=== PATIENT | female | born 1965 | race Caucasian/White ===

== ENCOUNTER → 2023-06-25 06:28 | Day surgery (SDC) | payer BC, SELFPAY ==
[2023-06-25 07:20] LABS: Glucose - Point of Care 189 mg/dl (70-99)
== END ==
LOC: GI 06:28
PROVIDERS: ATTENDING PHYSICIAN Internal Medicine Gastroenterology
DX: K62.5 Hemorrhage of anus and rectum (principal); R19.4 Change in bowel habit
CPT/HCPCS: 45380; 88305; 82962

== ENCOUNTER 2023-11-20 03:08 | Emergency (ER) | payer BC, SELFPAY ==
[2023-11-20] VITALS (19 sets, daily range): BP systolic 58–188; BP diastolic 20–156
[2023-11-20 03:26] LABS: Glucose - Point of Care 433 mg/dl (70-99)
[2023-11-20 03:36] LABS: % Basophils 1.9 % (0-2); % Immature Granulocytes 1.9 % (0-0.5); % Monocytes 8.2 % (1.7-9.3); Absolute Basophils 0.1 10^3/uL (0-0.2); Absolute Immature Granulocytes 0.1 10^3/uL (0-0.05); Absolute Lymphocytes 0.9 10^3/uL (1.2-3.4); Absolute Monocytes 0.3 10^3/uL (0.1-0.6); Absolute Neutrophils 1.9 10^3/uL (1.4-6.5); Hematocrit 58.7 % (37.0-47.0); Mean Corp Hgb Conc. 32.4 g/dL (33.0-37.0); Mean Corpuscular Hgb 27.3 pg (27.0-31.0); Mean Corpuscular Volume 84.5 fL (81.0-99.0); Mean Platelet Volume 10.4 fL (7.4-10.4); Nucleated Red Blood Cells % 0 %; Platelet Count 237 10^3/uL (130-400); Red Blood Cell Count 6.95 10^6/uL (4.20-5.40); Red Cell Dist. Width 13.2 % (11.5-14.5); White Blood Cell Count 3.2 10^3/uL (4.8-10.8)
[2023-11-20 03:38] LABS: Venous Blood Gas B.E. -18.1 mmol/L (-4 to +4); Venous Blood Gas HCO3 9.2 mmol/L (22-27); Venous Blood Gas O2 Sat % 64.5 %; Venous Blood Gas pCO2 27 mmHg (35-48); Venous Blood Gas pO2 40 mmHg (30-50)
[2023-11-20 03:39] LABS: Venous Blood Gas pH 7.14 (7.32-7.43)
--- NOTE | 2023-11-20 03:43 | ED.GENMED ---
History of Present Illness
General
Chief Complaint: Change in Mental Status
Source: spouse and ambulance crew
Exam Limitations: altered mental status
Time Seen by Provider: 11/20/23 03:20
Nursing documentation reviewed up to this point in time: agreed with
History of Present Illness
History of Present Illness:
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
notes that his has been complaining of a headache throughout the week, taking Tylenol over the past several days but headache has been severe throughout the day yesterday and she called her at 5 PM yesterday evening asking him
to come home from work as her headache was severe and she began vomiting. Several episodes of vomiting tonight with persistently severe headache. She became more drowsy which prompted called 911. She arrives via EMS significantly drowsy/obtunded,
intermittently moaning to painful stimuli, purposeful withdrawal to painful stimuli.
He does not believe she has suffered any falls. No seizure activity. She has not had a fever. She has not had a cough.
She has not been incontinent of bladder nor bowel.
She does have history of tiz-qmbucat-ogluyfest diabetes maintained on Jardiance and metformin. Most recent hemoglobin A1c 8.8.
Since initiating chemotherapy she has been started on oral Decadron. admits that her blood sugars have been running elevated in the 300s to 400s.
Prehospital Accu-Chek over 400.
According to , previous head imaging showed no evidence of brain metastatic disease.
Past History
Past History
ED Past Medical History: Cancer (Tongue cancer metastatic to cervical lymph nodes), Hypercholesterolemia and NIDDM
Social History
Tobacco: Non-smoker
Alcohol: None
Drug: None
Personal:
Living: with family
Employment: Employed
Family History
Family History: Unable to obtain
Phy Exam
Physical Exam
Physical Exam:
GENERAL: 58-year-old woman appears her stated age. Significantly drowsy/obtunded. GCS of 10.
EYE: Pupils are 2 to 3 mm, bilaterally sluggish to light. Disconjugate gaze. Anicteric
NECK: Supple, nontender, no meningismus, no significant adenopathy.
ENT: posterior pharynx is clear, oral mucosa is mildly dry. TM clear b/l, nares patent.
CARDIAC: Regular rhythm, tachycardic. no murmur.
LUNGS: no acute respiratory distress, scant rales right base otherwise clear to auscultation.
ABDOMEN: Soft, nondistended, without appreciable tenderness.
NEUROLOGICAL: Obtunded, GCS of 10. Withdrawals to painful stimuli.
SKIN: Warm and dry, normal color, skin intact. No rash.
MUSCULOSKELETAL: No C/C/E. peripheral pulses are full and equal b/l. No palpable tenderness.
PSYCH: Unobtainable.
Demarcus Coma Scale
Eye Opening: Spontaneous
Verbal Response: Incomprehensible
Motor Response: Withdraws to Pain
GCS Total Score: 10
Course
Orders/Labs/Results
Orders:
Orders
11/20/23 03:[address] [CT Head W/o Iv Contrast] Urgent
Comment:
Reason For Exam: change in mental
11/20/23 03:17
Electrocardiogram (*1) Urgent
Reason for Study: Other
Other Reason for Exam: change in mental status
EKG- Treatment ONCE
11/20/23 03:26
B-Hydroxybutyrate Urgent
Comment: ADD ON
Complete Blood Count/With Diff Urgent
Comprehensive Metabolic Panel Urgent
Lactic Acid Urgent
Troponin I Urgent
Venous Blood Gas Urgent
%Oxygen/Room Air: 98 room air
11/20/23 03:58
Propofol 1,000,000 Mcg/100 ml [Diprivan] 1,000,000 mcg in 100 ml .ROUTE .STK-MED
11/20/23 03:59
Ondansetron Injectable [Zofran] 4 mg .ROUTE .STK-MED ONE
11/20/23 04:06
Cr Chest Portable [CR Chest Portable - 1 View] Urgent
Comment:
Reason For Exam: post intubation
Reason Study Needs to be Portable: Unable to Transport
11/20/23 04:08
FentaNYL 1,000 MCG/100 ML [Sublimaze] 1,000 mcg in 100 ml IV NOW
Indication:: Light Sedation
Begin Infusion:: Now
Goal:: pain score </= 1, CPOT 0-2
Maximum dose in mcg/hr:: 300
Initial Dose in mcg/hr:: 50
Titration Instructions:: Titrate every 30 minutes if patient exhibits signs of pain or discomfort
Titration Instructions:: (pain score >/= 2, CPOT >/= 3).
Titration Instructions:: Administer bolus dose and increase infusion by 25 mcg/hr.
Taper Instructions:: If pain score at goal for 4 consecutive hours (pain score </= 1, CPOT 0-2)
Taper Instructions:: decrease infusion by 50 mcg/hr every 2 hours.
Taper Instructions:: When dose </= 50 mcg/hr may turn infusion off and consider PRN
Taper Instructions:: intermittent bolus doses only.
Over-sedation Instructions:: If CPOT 0-2 (goal) and RASS -3 to -5 (below goal) decrease sedative by 50%
Over-sedation Instructions:: first. If pain score remains at goal and RASS remains below goal in 1 hour,
Over-sedation Instructions:: decrease opioid infusion by 50%.
Notify provider:: immediately if pt exhibits: chest wall rigidity, hemodynamic instability,
Notify provider:: agitation/pain despite maximum dosing, pain when RASS below goal.
Additional Instructions:: Patient MUST be mechanically ventilated.
Fentanyl Citrate/Pf [Sublimaze] 50 mcg IV [id number] PRN
Fentanyl Citrate/Pf [Sublimaze] 65 mcg IV NOW STA
11/20/23 04:13
Fentanyl Citrate/Pf [Sublimaze] 100 mcg .ROUTE .STK-MED ONE
11/20/23 04:22
Add On- LAB Urgent
Tests Added?: betahydroxybuterate
11/20/23 04:23
0.9% Sodium Chloride 1000 ml [Nss] 1,000 ml IV BOLUS
11/20/23 04:24
Insulin Human Regular [Novolin R] 5 units IV NOW STA
Reg Insulin 100 Units/100 ml [Novolin R Insulin Infusion] 100 units in 100 ml IV NOW
11/20/23 04:25
Bedside Glucose- Treatment Q1H
IV Insert/Care/Rem.- Treatment PRN
11/20/23 04:30
Basic Metabolic Panel Q2H
11/20/23 04:41
ABG [Arterial Blood Gas] Urgent
%Oxygen/Room Air: 100% AC 450, RR-20 peep 5
11/20/23 05:00
Urinalysis Reflex To Culture Urgent
Date Specimen was Collected: 11/20/23
Time Specimen was Collected: 04:31
11/20/23 05:01
Sodium Bicarbonate 100 meq IV NOW STA
11/20/23 05:04
0.45% Sodium Chloride 1000 ml [0.45%NaCl] 1,000 ml Sodium Bicarbonate 75 meq IV 200 mls/hr
11/20/23 05:18
Midazolam HCl [Versed] 5 mg IV NOW STA
11/20/23 06:30
Basic Metabolic Panel Q2H
11/20/23 08:30
Basic Metabolic Panel Q2H
Abnormal Lab Results
11/20/23 11/20/23 11/20/23
03:23 03:26 04:41
WBC 3.2 L 10^3/uL
(4.8-10.8)
RBC 6.95 H 10^6/uL
(4.20-5.40)
Hgb 19.0 H g/dL
(12.0-16.0)
Hct 58.7 H %
(37.0-47.0)
MCHC 32.4 L g/dL
(33.0-37.0)
Abs Immat Gran (auto) 0.1 H 10^3/uL
(0-0.05)
Absolute Lymphs (auto) 0.9 L 10^3/uL
(1.2-3.4)
Immature Gran % 1.9 H %
(0-0.5)
pH 7.14 L*
(7.35-7.45)
pCO2 17 L* mmHg
(32-35)
pO2 495 H mmHg
(83-108)
HCO3 5.8 L* mmol/L
(21-28)
ABG O2 Sat (Measured) 98.4 H %
(94-98)
VBG pH 7.14 L*
(7.32-7.43)
VBG pCO2 27 L mmHg
(35-48)
VBG HCO3 9.2 L mmol/L
(22-27)
Potassium 5.3 H mmol/L
(3.5-5.1)
Carbon Dioxide 7 L* mmol/L
(22-30)
BUN 45 H mg/dl
(7-17)
Creatinine 1.3 H mg/dL
(0.6-1.0)
Glucose 450 H mg/dl
(70-99)
Lactic Acid 3.2 H mmol/L
(0.7-2.0)
Calcium 10.5 H mg/dl
(8.4-10.2)
Alkaline Phosphatase 157 H U/L
(38-126)
Albumin 5.2 H g/dl
(3.5-5.0)
Urine Ketones
Urine Glucose
B-Hydroxybutyrate > 9.0 H mmol/L
(0.02-0.27)
POC Glucose 433 H mg/dl
(70-99)
11/20/23 11/20/23
05:00 05:37
WBC
RBC
Hgb
Hct
MCHC
Abs Immat Gran (auto)
Absolute Lymphs (auto)
Immature Gran %
pH
pCO2
pO2
HCO3
ABG O2 Sat (Measured)
VBG pH
VBG pCO2
VBG HCO3
Potassium
Carbon Dioxide
BUN
Creatinine
Glucose
Lactic Acid
Calcium
Alkaline Phosphatase
Albumin
Urine Ketones 3+ A
(Negative)
Urine Glucose 3+ A
(Negative)
B-Hydroxybutyrate
POC Glucose 307 H mg/dl
(70-99)
11/20/23 03:26
Vital Signs
Initial and Last Documented VS:
Initial Vital Signs
Pulse Resp Pulse Ox
138 20 98
11/20/23 04:19 11/20/23 04:19 11/20/23 04:19
Last Documented Vital Signs
Pulse Resp BP Pulse Ox
125 20 69/20 98
11/20/23 05:40 11/20/23 05:40 11/20/23 06:00 11/20/23 05:40
Procedures
Intubations
Procedure completed by: Myself
Method of Intubation: glidescope
Tube size (cm): 7.0
Placement confirmed by: auscutation, CXR, capnography and direct visualization
Breath sounds after intubation: equal
Intubation complications: no complications
MDM/Problems Addressed
Differential Diagnosis Includes:
Significant concern for intracerebral hemorrhage, acute intracerebral salt. Stat CT of the head in progress.
Patient is obtunded with recent vomiting, we will plan to orally intubate upon return from CAT scan to protect her airway and assist with respiratory effort.
History of zse-kvhtnqa-cchyzwuli diabetes, blood sugars have been elevated, currently on Decadron with initiation of chemotherapy. Concern for DKA, acidosis, electrolyte abnormality.
Patient immunocompromised with current chemotherapy, diabetes, malignancy, concern for occult infectious process.
Chronic conditions affecting care: DM, Immunosuppressed and Cancer
*Radiology
Radiology exam reviewed: preliminary read by ED provider (Chest x-ray shows clear lung dugan. ET tube not clearly visualized, will plan to insert tube further into trachea.) and radiology read reviewed
*Pulse Oximetry
Patient hypoxic: no
*EKG
Interpreted by ED Provider?: Yes
Interpretation: abnormal
Comparison EKG: no comparison EKG present
Rate: tachycardiac
Rhythm: sinus
[place]: normal axis
Interval: normal interval
QRS Pattern: normal QRS
Ischemia: no ischemia
*Vp Director Of Finance Interpretation
Rate: tachycardiac
Interpretation: abnormal
Rhythm: sinus
*Critical Care Note
Total Time (30-74mins, 75-104mins- exclusive of procedures): 70
comment:
Critical care statement: A total of 70 minutes of critical care time was provided for this patient. This includes management of unstable vital signs, evaluation of the patient at bedside, reviewing the patient's pertinent medical records, discussion
with consultants, review of old EKGs and review of pertinent medical records. This time with separate from time utilized to perform the aforementioned documented procedures
Update Note
Update Note:
CAT scan shows intracerebral hemorrhage left occipital as well as hyperdense straight sinus, left transverse and sigmoid sinus concerning for cerebral venous sinus thrombosis with associated venous hemorrhage. Recommend CT venogram.
Patient sedated and orally intubated without difficulty.
Labs remarkable for significantly elevated blood sugar over 400, metabolic acidosis, mild hyperkalemia at 5.3, concern for DKA. Will initiate IV fluids, initiate IV insulin drip.
ABG is pending, beta hydroxybutyrate is pending.
I have been in contact with neurosurgery at [facility]. Patient is accepted in transfer.
Due to poor weather, helicopters are grounded. Will plan for ALS ground transport via [facility].
at bedside and updated with plan of care.
11/20/2023 0503 AM
ABG shows significant continued metabolic acidosis with CO2 of 17, bicarb of 5.8, pH 7.14. Beta hydroxybutyrate significantly elevated at greater than 9
Will give 2 A of bicarb IV and initiate bicarb drip. Will continue IV insulin drip.
Awaiting [facility] arrival.
Patient remains sedated with IV fentanyl drip. Has required an IV dose of Versed. Sinus tachycardia mildly improved. Remains hemodynamically stable.
ED Attending Note
-
Portions of this chart may have been created with voice recognition software.� Occasional wrong word or��sound alike� substitutions may have occurred due to the inherent limitations of voice recognition software.
Discharge Plan
Departure
Patient Disposition: Acute Care Hospital
Date of Disposition: 11/20/23
Time of Disposition: 05:04
Condition: Serious
Discharge Problem:
Acute intracerebral hemorrhage, DKA (diabetic ketoacidosis), severe metabolic acidosis
Prescriptions:
No Action
ondansetron HCl [Zofran] 8 mg Tablet
8 mg PO Q8H PRN (Reason: nausea)
olanzapine [Zyprexa] 5 mg Tablet
5 mg PO HS
Rx Instructions:
x 3 days post chemo
prochlorperazine maleate [Compazine] 10 mg Tablet
10 mg PO Q6H PRN (Reason: nausea)
capecitabine [Xeloda] 500 mg Tablet
2,000 mg PO BID
Rx Instructions:
7 days on 7 days off
dexamethasone 4 mg Tablet
4 mg PO BID
metformin 500 mg Tablet Extended Release 24 Hr
1,000 mg PO BID
pregabalin 150 mg Capsule
150 mg PO BID
Jardiance 25 mg Tablet
25 mg PO DAILY
Hospital Transfer
Other hospital: [facility]
I certify that the patient requires transfer: Yes
Discussed case with accepting physician: Dr Carlin
Reason for transfer: higher level of care and specialties available
Interventions
Interventions:
ED- Neurological Assessment Last Done: 11/20/23 03:20
ED Swallowing Screen Last Done: 11/20/23 03:21
Discharge Date and Time
Print Language: PORTUGUESE
[2023-11-20 03:54] LABS: Lactic Acid 3.2 mmol/L (0.7-2.0)
[2023-11-20 04:00] LABS: ALT (SGPT) 22 U/L (0-35); AST (SGOT) 20 U/L (14-36); Albumin 5.2 g/dl (3.5-5.0); Alkaline Phosphatase 157 U/L (38-126); Blood Urea Nitrogen 45 mg/dl (7-17); Calcium 10.5 mg/dl (8.4-10.2); Carbon Dioxide 7 mmol/L (22-30); Chloride 98 mmol/L (98-107); Glucose 450 mg/dl (70-99); Potassium 5.3 mmol/L (3.5-5.1); Sodium 139 mmol/L (135-145); Total Bilirubin 0.6 mg/dl (0.2-1.3); Total Protein 7.8 g/dl (6.3-8.2); eGFR 47.08
[2023-11-20 04:07] LABS: Troponin I < 0.012 ng/ml
[2023-11-20] MEDS: SUBLIMAZE 100 IV (04:13)
[2023-11-20] MEDS: SUBLIMAZE 65 MCG IV (04:14)
[2023-11-20] MEDS: NOVOLIN R INSULIN INFUSION 100 IV (04:39)
[2023-11-20] MEDS: NOVOLIN R 5 UNITS IV (04:45)
[2023-11-20 04:51] LABS: B.E. -20.9 mmol/L; O2 Saturation % 98.4 % (94-98); PO2 495 mmHg (83-108)
[2023-11-20] MEDS: NSS 1000 IV (04:53)
[2023-11-20 04:58] LABS: HCO3 5.8 mmol/L (21-28); PCO2 17 mmHg (32-35); pH 7.14 (7.35-7.45)
[2023-11-20] MEDS: SODIUM BICARBONATE 100 MEQ IV (05:04)
[2023-11-20] MEDS: SUBLIMAZE 50 MCG IV (05:15)
[2023-11-20] MEDS: VERSED 5 MG IV (05:20)
[2023-11-20 05:26] LABS: B-Hydroxybutyrate > 9.0 mmol/L (0.02-0.27)
[2023-11-20] MEDS: SODIUM BICARBONATE 1075 MEQ IV (05:33)
[2023-11-20 05:39] LABS: Glucose - Point of Care 307 mg/dl (70-99)
[2023-11-20 06:05] LABS: Urine Albumin Negative (Neg - Trace); Urine Bilirubin Negative (Negative); Urine Character Clear (Clear); Urine Color Yellow; Urine Glucose 3+ (Negative); Urine Ketone 3+ (Negative); Urine Leukocyte Negative (Negative); Urine Nitrite Negative (Negative); Urine Occult Blood Negative (Negative); Urine Urobilinogen Negative (Neg - 1+)
--- NOTE | 2023-11-20 06:14 | EDRN ---
Pt arrived via EMS: upon arrival pt noted to be gazing to the right. GCS of 5. Pt incontinent of urine, decorticated posturing. Pt arrived with #22 in right hand. Per EMS Blood sugar 475. Pt placed on monitor, tachycardia, hypertensive. Pt with
another incontinent episode. Per last 'normal' was noted in the earlier in the day. Pt projectile vomited brown colored liquid. Labs drawn and sent. #18 in Right AC. Bolus of IV fluids running. Pt taken to CT scan with nurse and tech on
monitor. Pt still remains non verbal, responds to pain stimuli. Post results of CT scan, dr in room informing of need for intubation. Respiratory at bedside. Per Dr. Blum orders 60mg Propofol given at 0404, 50 rocuronium given at 0404, 4mg
of zofran given. Successfully tube placement with positive color change at 0405. #7 tube, 20' at lip. 0417 Fentanyl bolus given then Fentanyl gtt started as ordered at 50mcg. 0451 Insulin gtt started as ordered. Bi carb gtt started in left AC #20.
Attempted to place OG tube, pt biting tube. 0512 pt bucking vent, biting ET tube fentanyl increased to 70mcg. 5mg of versed given per orders. In meantime temp bach inserted draining clear yellow urine. Jcarlos at bedside being updated by
Dr. Blum. Jcarlos and son at bedside. [facility] transfer team arrived approx 0520. Pt left with ground crew from [facility] at approx 0540. Report called and given to nurse at [facility] at [phone].
== END 2023-11-20 06:00 | disposition short-term general hospital (02) ==
LOC: EMR 03:08
PROVIDERS: EMERGENCY PHYSICIAN Emergency Medicine
DX: I61.9 Nontraumatic intracerebral hemorrhage, unspecified (principal); E11.10 Type 2 diabetes mellitus with ketoacidosis without coma; R11.10 Vomiting, unspecified; R00.0 Tachycardia, unspecified; C02.9 Malignant neoplasm of tongue, unspecified; C77.0 Secondary and unspecified malignant neoplasm of lymph nodes of head, face and neck; D84.9 Immunodeficiency, unspecified; E78.00 Pure hypercholesterolemia, unspecified; Z79.84 Long term (current) use of oral hypoglycemic drugs
CPT/HCPCS: 99291; 31500; 96365; 96366 ×2; 96367; 70450; 71045; 80053; 81003; 82010; 82805; 82962; 83605; 84484; 85025; 93005; J7030